=== PATIENT | female | born 1975 | race Caucasian/White ===

== ENCOUNTER 2019-07-29 08:08 | Outpatient (CLI) | payer OTHER ==
--- NOTE | 2019-07-29 09:19 | ULT ---
Sonogram right upper quadrant HISTORY: Right upper quadrant pain. FINDINGS: Gallbladder has a normal appearance. No stones visible. Common duct is 0.4 cm. Liver unremarkable without focal mass or intrahepatic biliary dilatation. No f ree fluid. IMPRESSION: Normal right upper quadrant sonogram.
== END 2019-07-29 08:09 | disposition home or self-care (01) ==
LOC: NAV ULT 08:08
PROVIDERS: ATTEND Nurse Practitioner Adult Health
DX: R10.11 Right upper quadrant pain (principal)
CPT/HCPCS: 76705